=== PATIENT | male | born 1975 | race Caucasian/White ===

== ENCOUNTER 2020-04-10 17:14 | Emergency (ER) | payer BC, SELFPAY ==
[2020-04-10 17:24] VITALS: BP 148/101; PULSE 99; RESP 20; TEMP 36.7; O2SAT 98; BMI 42.0
--- NOTE | 2020-04-10 17:31 | HMH.EDUTC ---
[facility] [place] Clinical Impression: Migraine Qualifiers: Migraine type: with aura Status migrainosus presence: without status migrainosus Intractability: not intractable Qualified Code(s): G43.109 - Migraine with aura, not intractable, without status migrainosus Disposition: Home, Self-Care Condition on Discharge: Good Instructions: Migraine -- Adult, DI for Migraine Additional Instructions: Drink plenty of fluids. Resume your regular migraine treatment. Follow up with your regular doctor. GO TO THE ER FOR ANY WORSENING SYMPTOMS Referrals: Tez Sewell [Primary Care Provider] - Time of Disposition: 17:47 Medical Decision Making - Medical Records Medical records reviewed: No: I reviewed the patient's medical records. - Felice Inquiry Pt receiving controlled substance: No Vital Signs: 04/10/20 17:24 04/10/20 18:01 Temperature 98.0 F 98.0 F Temperature Source Oral Oral Pulse Rate 99 H Pulse Rate [Radial] 99 H Respiratory Rate 20 20 Blood Pressure 148/101 H Blood Pressure [Right Arm] 148/101 H Blood Pressure Mean [Right Arm] 116 Blood Pressure Source Automatic Cuff Blood Pressure Source [Right Arm] Automatic Cuff Blood Pressure Position Sitting Blood Pressure Position [Right Arm] Sitting 02 Sat by Pulse Oximetry 98 Oxygen Delivery Method Room Air Room Air Orders (Tests/Meds): ED MEDICATIONS Discontinued Medications Generic Name Dose Route Start Last Admin Trade Name Freq PRN Reason Stop Dose Admin Ketorolac Tromethamine 60 mg 04/10/20 17:29 04/10/20 17:58 Toradol 60mg/2ml Vial IM 04/10/20 17:30 60 mg ONCE ONE Administration Methylprednisolone Sodium Succinate 125 mg 04/10/20 17:29 04/10/20 17:58 Solu-Medrol 125mg/2ml Vial IM 04/10/20 17:30 125 mg ONCE ONE Administration Metoclopramide HCl 10 mg 04/10/20 17:29 04/10/20 17:58 Reglan 10mg/2ml Vial IM 04/10/20 17:30 10 mg ONCE ONE Administration [facility] [place] - General Stated complaint: Bad migraine Time Seen by Provider: 04/10/20 17:35 Mode of Arrival: Ambulatory Source of Information: Patient Limitations: No Limitations Description of Symptoms (Recalled from Triage Doc. by RN): migraine HEENT Symptoms (Recalled from RN notes): Yes Resp Symptoms (Recalled from RN notes): No Skin Symptoms (Recalled from RN notes): No MS Symptoms (Recalled from RN notes): No Functional Status (Recalled from RN notes): wnl - History of Present Illness Provider Complaint: He reports that he has had a migraine headache since this morning. He has a history of migraines. He denies any weakness or other complaints. - Related Data Previous Rx's Medication Instructions Recorded Acetaminophen 1,000 mg PO Q8H PRN #60 tab 09/12/19 Gabapentin [Gabapentin 300mg Cap] 300 mg PO TID #21 cap 09/12/19 Ibuprofen [Ibuprofen 600mg 600 mg PO Q6H #40 tab 09/12/19 Tablet] Sulfamethoxazole/Trimethoprim 1 each PO BID #20 tab 09/12/19 [Bactrim DS tablet] cephALEXin [cephALEXin 500mg 500 mg PO Q8H #30 cap 09/12/19 capsule*] Allergies Allergy/AdvReac Type Severity Reaction Status Date / Time No Known Allergies Allergy Verified 09/12/19 12:35 - Worker's Comp Is this a Worker's Comp case?: No [facility] History - Hepatitis A Screen Drug use history?: No High risk sexual behaviors?: No History of sexually transmitted infection?: No Currently employed?: No Childcare worker?: No Do you have indoor plumbing?: Yes Do you have electricity?: Yes Attestation statement:: This patient has been screened for Hepatitis A risk factors. I have reviewed the patient's past medical history: Yes - Social History Alcohol Intake: never Occupational Status: employed Housing: house ROS Obtained: Yes All systems reviewed & no additional complaints - Constitutional Constitutional: Denies chills, Denies fever(s) - Eyes Eyes: Denies blurry vision, Denies change in vision, Denies eye discharge - ENT Ears,
[2020-04-10 18:01] VITALS: BP 148/101; PULSE 99; RESP 20; TEMP 36.7; O2SAT 98
== END 2020-04-10 18:02 | disposition home or self-care (01) ==
PROVIDERS: Emergency Provider Nurse Practitioner Family; PCP Family Medicine
DX: G43.109 Migraine with aura, not intractable, without status migrainosus (principal)
CPT/HCPCS: 96372; 99201

== ENCOUNTER 2020-07-07 07:48 | Emergency (ER) | payer BC, SELFPAY ==
[2020-07-07 07:49] VITALS: BP 139/82; PULSE 88; RESP 18; TEMP 36.6; O2SAT 96; BMI 41.3
--- NOTE | 2020-07-07 08:27 | HMH.EDGENADL ---
ED Disposition Clinical Impression: Laceration Disposition: Home, Self-Care Condition on Discharge: Good Instructions: DI for Laceration Repair Additional Instructions: Have your stitches removed in 10-14 days, return with sign of infection including redness, warmth, drainage of pus. Do not submerge your arm in water for 48 hours, you can shower / wash your hands and pat dry. Referrals: Tez Sewell [Primary Care Provider] - - Critical Care Critical Care Time: No Attestation: On 07/07/20, the high probability of a clinically significant, sudden or life threatening deterioration of the following system(s) required my full and direct attention, intervention and personal management. The time I documented below is in addition to time spent performing reported procedures but includes the following listed in this critical care notation. Medical Decision Making - Felice Inquiry Pt receiving controlled substance: No Felice was queried for this patient: No Vital Signs: 07/07/20 07:49 Temperature 97.8 F Temperature Source Temporal Artery Scan Pulse Rate [Right] 88 Respiratory Rate 18 Blood Pressure [Right Arm] 139/82 Blood Pressure Mean [Right Arm] 101 02 Sat by Pulse Oximetry 96 Orders (Tests/Meds): ED MEDICATIONS Discontinued Medications Generic Name Dose Route Start Last Admin Trade Name Freq PRN Reason Stop Dose Admin Lidocaine HCl 20 ml 07/07/20 08:01 07/07/20 08:15 Lidocaine 1% 20ml Mdv IJ 07/07/20 08:02 20 ml ONCE ONE Administration Medical Decision Narrative: Patient is a 45 year old male who presents to the ED with laceration. Laceration was irrigated and repaired by myself without complication. Tetanus is up to date. Patient requesting refill of his home neurontin - of note he was prescribed a 1 month supply on June 24. Patient will need to follow up with his PCP for this. General Adult HPI - General Chief complaint: Wound/Laceration Stated complaint: cut right arm Time Seen by Provider: 07/07/20 07:49 Mode of Arrival: Ambulatory Limitations: No Limitations Description of Symptoms (Recalled from ER Triage Doc. by RN): Laceration to the right forearm from a nail. Tdap UTD. - History of Present Illness HPI narrative: Patient presents today with laceration to the right arm. Happened just prior to arrival. Patient states he was moving around couch cushions and there was a nail sticking out. No other injuries. Tetanus is up to date. - Related Data Previous Rx's Medication Instructions Recorded Acetaminophen 1,000 mg PO Q8H PRN #60 tab 09/12/19 Gabapentin [Gabapentin 300mg Cap] 300 mg PO TID #21 cap 09/12/19 Ibuprofen [Ibuprofen 600mg 600 mg PO Q6H #40 tab 09/12/19 Tablet] Sulfamethoxazole/Trimethoprim 1 each PO BID #20 tab 09/12/19 [Bactrim DS tablet] cephALEXin [cephALEXin 500mg 500 mg PO Q8H #30 cap 09/12/19 capsule*] Allergies Allergy/AdvReac Type Severity Reaction Status Date / Time No Known Allergies Allergy Verified 09/12/19 12:35 [facility] History - Hepatitis A Screen Drug use history?: No High risk sexual behaviors?: No History of sexually transmitted infection?: No Currently employed?: No Childcare worker?: No Do you have indoor plumbing?: Yes Do you have electricity?: Yes Attestation statement:: This patient has been screened for Hepatitis A risk factors. I have reviewed the patient's past medical history: Yes Medical History: Reports:: Anxiety - Social History Alcohol Intake: never Occupational Status: employed Housing: house ROS Obtained: Yes All systems reviewed & no additional complaints Physical Exam - General General appearance: alert, in no apparent distress - Head Head exam: atraumatic, normocephalic, normal inspection - Eye Eye exam: Present: normal appearance, PERRL, EOMI - ENT ENT exam: Present: normal exam, normal oropharynx, mucous membranes moist, TM's normal bilaterally, normal external ear
[2020-07-07 08:52] VITALS: BP 132/85; PULSE 87; RESP 17; TEMP 36.8; O2SAT 95
== END 2020-07-07 08:53 | disposition home or self-care (01) ==
PROVIDERS: Emergency Provider Emergency Medicine; PCP Family Medicine
DX: S51.811A Laceration without foreign body of right forearm, initial encounter (principal); W45.0XXA Nail entering through skin, initial encounter; W22.8XXA Striking against or struck by other objects, initial encounter; Y92.019 Unspecified place in single-family (private) house as the place of occurrence of the external cause
CPT/HCPCS: 12002; 99282

== ENCOUNTER 2020-07-10 18:06 | Emergency (ER) | payer BC, SELFPAY ==
[2020-07-10 18:30] VITALS: BP 144/92; PULSE 101; RESP 19; TEMP 36.9; O2SAT 98; BMI 43.6
--- NOTE | 2020-07-10 18:36 | XR_ITS ---
PROCEDURE: XR HAND RT MIN 3V CLINICAL INDICATION: injured middle finger Posttraumatic pain COMPARISON: No exams were available for comparison FINDINGS: There is a lucency through the proximal and ulnar aspect of the proximal phalanx of the 3rd digit consistent with a nondisplaced avulsion fracture best seen on the oblique view. There is a lucent lesion involving the tuft of the distal phalanx of the 4th digit. The a lucent area is present at this region measuring nearly 4 mm. There is suggestion of bony destruction. IMPRESSION: 1. Nondisplaced avulsion fracture proximal and ulnar aspect of the proximal phalanx of the 3rd digit 2. Lucent lesion of the tuft of the distal phalanx of the 4th digit with suggestion of some bony destruction which could be posttraumatic, infection, or neoplastic. Please correlate with clinical parameters.. Dictated by: Jorgito Jenkins MD 07/11/2020 05:50 Jorgito Jenkins MD in [place] 07/11/2020 05:50
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
[2020-07-10 19:28] VITALS: BP 144/92; PULSE 101; RESP 19; TEMP 36.9; O2SAT 98
== END 2020-07-10 19:29 | disposition home or self-care (01) ==
PROVIDERS: Emergency Provider Nurse Practitioner; PCP Family Medicine
DX: S51.811D Laceration without foreign body of right forearm, subsequent encounter (principal); L03.113 Cellulitis of right upper limb; S62.642A Nondisplaced fracture of proximal phalanx of right middle finger, initial encounter for closed fracture; W22.09XA Striking against other stationary object, initial encounter; Y92.010 Kitchen of single-family (private) house as the place of occurrence of the external cause
CPT/HCPCS: 73130; 99201

== ENCOUNTER 2020-07-12 12:50 | Emergency (ER) | payer BC, SELFPAY ==
--- NOTE | 2020-07-12 12:48 | ECG_ITS ---
APPROVED REPORT Exam: Resting ECG HR:106 bpm ECG Measurements Heart Rate 106 AXES AR 150 P 35 QRSd 90 QRS 24 QT 328 T 51 QTc 435 Conclusion Sinus tachycardia Otherwise normal ECG Electronically signed by : Micheal Banda, 07/12/2020 18:13:53
[2020-07-12 12:50] VITALS: BP 124/88; PULSE 102; RESP 20; TEMP 37.6; O2SAT 100; BMI 38.0
--- NOTE | 2020-07-12 12:54 | HMH.EDGENADL ---
ED Disposition Clinical Impression: Atypical chest pain, Vertigo, Visual disturbance, Vomiting and diarrhea Abdominal pain Qualifiers: Abdominal location: lower abdomen, unspecified Qualified Code(s): R10.30 - Lower abdominal pain, unspecified Disposition: Home, Self-Care Condition on Discharge: Good Instructions: DI for Atypical Chest Pain, DI for Vertigo, DI for Abdominal Pain-Adult, DI for Diarrhea and Traveler's Diarrhea -- Adult, DI for Vomiting -- Adult Additional Instructions: Follow-up with your primary care provider and with your creative recruiter. Return to the emergency department if symptoms worsen. Antivert for dizziness, Zofran for nausea and vomiting. Take Imodium for diarrhea. Additional instructions for CHEST PAIN: See your physician as soon as possible for further evaluation. Return immediately if worsening chest pain, vomiting, shortness of breath, fever, coughing of blood. Prescriptions: Meclizine HCl [Antivert 25mg tablet] 25 mg PO TIDP PRN #15 tab PRN Reason: Vertigo Transmission Status: Pending to [facility] Ondansetron [Zofran 4mg ODT] 4 mg PO TIDP PRN #10 tab.rapdis PRN Reason: Nausea And Vomiting Transmission Status: Pending to [facility] Referrals: PCP,No [Non-Staff] - - Critical Care Critical Care Time: No Attestation: On , the high probability of a clinically significant, sudden or life threatening deterioration of the following system(s) required my full and direct attention, intervention and personal management. The time I documented below is in addition to time spent performing reported procedures but includes the following listed in this critical care notation. Medical Decision Making - Felice Inquiry Pt receiving controlled substance: No Vital Signs: 07/12/20 12:50 07/12/20 14:06 07/12/20 15:39 Temperature 99.6 F Temperature Source Oral Pulse Rate [Left Radial] 102 H 107 H 79 Respiratory Rate 20 Blood Pressure [Right Arm] 124/88 93/62 L 119/73 Blood Pressure Mean [Right Arm] 100 72 88 Blood Pressure Source [Right Arm] Automatic Cuff Automatic Cuff Automatic Cuff Blood Pressure Position [Right Arm] Sitting Sitting Sitting 02 Sat by Pulse Oximetry 100 98 98 Oxygen Delivery Method Room Air Room Air Nasal Cannula Oxygen Flow Rate (LPM) 2 07/12/20 16:12 07/12/20 16:52 Temperature Temperature Source Pulse Rate [Left Radial] 76 68 Respiratory Rate Blood Pressure [Right Arm] 110/74 114/76 Blood Pressure Mean [Right Arm] 86 88 Blood Pressure Source [Right Arm] Automatic Cuff Automatic Cuff Blood Pressure Position [Right Arm] Sitting Sitting 02 Sat by Pulse Oximetry 98 99 Oxygen Delivery Method Nasal Cannula Nasal Cannula Oxygen Flow Rate (LPM) 2 2 - Lab Data Lab Results 07/12/20 12:30: WBC 13.2 H, RBC 4.96, Hgb 15.1, Hct 45.0, MCV 90.8, MCH 30.5, MCHC 33.6, RDW 15.4, Plt Count 512 H, MPV 7.0 L, Neut % (Auto) 65.8, Lymph % (Auto) 22.7, [place] % (Auto) 7.2, Eos % (Auto) 3.7, Baso % (Auto) 0.5, Neut # (Auto) 8.7 H, Lymph # (Auto) 3.0, [place] # (Auto) 1.0, Eos # (Auto) 0.5 H, Baso # (Auto) 0.1 07/12/20 12:30: Sodium 141, Potassium 4.0, Chloride 100, Carbon Dioxide 27, Anion Gap 18.0 H, BUN 18, Creatinine 1.60 H, Estimated Creat Clear 104, Estimated GFR 47 L, Est GFR ( Amer) 57 L, Glucose 101 H, Calcium 10.5 H, Troponin I < 0.01 07/12/20 12:30: Amylase 51, Lipase 125 07/12/20 16:16: Troponin I < 0.01 Result diagrams: 07/12/20 12:30 07/12/20 12:30 Orders (Tests/Meds): ED MEDICATIONS Discontinued Medications Generic Name Dose Route Start Last Admin Trade Name Victor Manuelq PRN Reason Stop Dose Admin Diazepam 5 mg 07/12/20 14:11 07/12/20 14:18 Diazepam 10mg/2ml Syringe IV 07/12/20 14:12 5 mg ONCE ONE Administration Ketorolac Tromethamine 15 mg 07/12/20 14:06 07/12/20 14:17 Ketorolac 30mg/Ml Vial IV 07/12/20 14:07 15 mg ONCE ONE Administration Meclizine HCl 25 mg 07/12/20 14:06 07/12/20 14:
--- NOTE | 2020-07-12 13:08 | CT_ITS ---
PROCEDURE: CT ANGIO CHEST CLINCIAL INDICATION: chest pain and back pain Chest pain, dizziness, nausea vomiting COMPARISON: No exams were available for comparison TECHNIQUE: IV Contrast: 70ML Isovue 370 Axial images obtained with sagittal and coronal reformats. All CT scans at the facility use one or more dose reduction, viz: automated exposure control, ma/kV adjustment per patient size (including targeted exams where dose is matched to indication, i.e. head), or iterative reconstruction technique. FINDINGS: HEART AND MEDIASTINAL STRUCTURES: No aneurysm or aortic dissection is evident. No evidence of central pulmonary embolus. Peripheral pulmonary arteries are not well opacified. No mediastinal or hilar mass. LUNGS AND PLEURAL SPACES: There are mild atelectatic changes in the lung bases. No lobar consolidation or collapse. There is evidence of old granulomatous disease BONY STRUCTURES: Degenerative changes thoracic spine UPPER ABDOMEN: Unremarkable. ADDITIONAL FINDINGS: No other significant abnormalities. IMPRESSION: No acute finding Dictated by: Jorgito Jenkins MD 07/12/2020 14:39 Jorgito Jenkins MD in [place] 07/12/2020 14:39
--- NOTE | 2020-07-12 13:09 | CT_ITS ---
PROCEDURE: CT ABDOMEN PELVIS W CON CLINICAL INDICATION: abdominal pain Nausea and vomiting with abdominal pain the COMPARISON: No exams were available for comparison TECHNIQUE: IV Contrast: 75ML Isovue 370 Oral Contrast None Axial images obtained with sagittal and coronal reformats. All CT scans at the facility use one or more dose reduction, viz: automated exposure control, ma/kV adjustment per patient size (including targeted exams where dose is matched to indication, i.e. head), or iterative reconstruction technique. FINDINGS: Low-density changes are present at the region of the falciform ligament and may be due to focal fatty infiltration of the liver. No other focal liver lesions are evident. The gallbladder, spleen, adrenal glands, pancreas, and kidneys show no acute finding. There is some renal cortical scarring on the right versus lobulation. No evidence of aortic aneurysm or dissection. The celiac artery, SMA have an unremarkable appearance. The FIORELLA is patent. No intestinal obstruction or free air. No evidence of appendicitis or diverticulitis. There are mild degenerative changes in the lumbar spine. No acute finding. Surgical clips are present along the right inguinal region from prior hernia repair. IMPRESSION: No acute finding Dictated by: Jorgito Jenkins MD 07/12/2020 14:51 Jorgito Jenkins MD in [place] 07/12/2020 14:51
[2020-07-12 13:16] LABS: Basophils # 0.1 K/mm3 (0-0.2); Basophils % 0.5 % (0.1-2.0); Eosinophils # 0.5 K/mm3 (0.0-0.4); Eosinophils % 3.7 % (0.1-12.0); Hemoglobin 15.1 g/dL (14.1-18.0); Lymphocytes % 22.7 % (10-50); Mean Corpuscular HGB Conc 33.6 g/dL (31.8-35.4); Mean Corpuscular Hemoglobin 30.5 pg (27.0-31.2); Mean Corpuscular Volume 90.8 fl (80-94); Monocytes % 7.2 % (1.7-9.3); Neutrophils # 8.7 K/mm3 (1.8-7.8); Neutrophils % 65.8 % (37.0-80.0); Platelet Count 512 K/mm3 (142-424); Red Blood Count 4.96 M/mm3 (4.60-6.20); Red Cell Distribution Width 15.4 % (11.5-17.5); White Blood Count 13.2 K/mm3 (4.8-10.8)
[2020-07-12 13:19] LABS: Blood Urea Nitrogen 18 mg/dl (9-20); Calcium 10.5 mg/dl (8.4-10.2); Carbon Dioxide 27 mmol/L (22.0-30.0); Chloride 100 mmol/L (98-107); Creatinine Clearance Estimated 104 mL/min (50-200); Estimated Glomerular Filt Rate 47 ml/min (>60); GFR (African American) 57 ML/MIN (>60); Glucose 101 mg/dl (74-100); Sodium 141 mmol/L (136-145)
[2020-07-12 13:33] LABS: Troponin I < 0.01 ng/ml (0.00-0.034)
[2020-07-12 13:34] LABS: Amylase 51 U/L (30-110); Lipase 125 U/L (23-300)
--- NOTE | 2020-07-12 13:48 | PC.NURSE ---
v/s delayed due to rad.
--- NOTE | 2020-07-12 14:00 | PC.NURSE ---
Pt returned from rad.
[2020-07-12 14:06] VITALS: BP 93/62; PULSE 107; O2SAT 98
--- NOTE | 2020-07-12 14:29 | PC.NURSE ---
Pt states that he does not want the promethazine due to it making him sleepy. He is requesting zofran instead. Instructed to pt that promethazine in recommended for dizziness. Pt understands. aware. Order changed to zofran
[2020-07-12 15:39] VITALS: BP 119/73; PULSE 79; O2SAT 98
--- NOTE | 2020-07-12 15:39 | PC.NURSE ---
Pt sleeping at this time.
[2020-07-12 16:12] VITALS: BP 110/74; PULSE 76; O2SAT 98
[2020-07-12 16:52] VITALS: BP 114/76; PULSE 68; O2SAT 99
[2020-07-12 16:54] LABS: Troponin I < 0.01 ng/ml (0.00-0.034)
[2020-07-12 17:28] VITALS: BP 133/74; PULSE 75; RESP 16; TEMP 36.6; O2SAT 98
== END 2020-07-12 17:30 | disposition home or self-care (01) ==
PROVIDERS: Emergency Provider Emergency Medicine; PCP Family Medicine
DX: R07.89 Other chest pain (principal); R42 Dizziness and giddiness; R10.30 Lower abdominal pain, unspecified; G43.709 Chronic migraine without aura, not intractable, without status migrainosus; I10 Essential (primary) hypertension; F41.9 Anxiety disorder, unspecified; Z79.899 Other long term (current) drug therapy; F11.21 Opioid dependence, in remission
CPT/HCPCS: 71275; 74177; 80048; 82150; 83690; 84484; 85025; 93005; 96374; 96375; 99284; J2405

== ENCOUNTER 2020-07-16 05:28 | Emergency (ER) | payer BC, SELFPAY ==
[2020-07-16 05:23] VITALS: BMI 34.7
[2020-07-16 05:24] VITALS: BP 167/108; PULSE 90; RESP 15; TEMP 36.5; O2SAT 95; BMI 34.2
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
[2020-07-16 05:45] VITALS: BP 151/79; PULSE 78; RESP 16; O2SAT 98
--- NOTE | 2020-07-16 05:49 | PC.NURSE ---
report called to at 0540. report given to paloma WILSON.
--- NOTE | 2020-07-16 05:51 | PC.NURSE ---
0448 air methods arrive
[2020-07-16 05:53] VITALS: BP 153/94; PULSE 90; RESP 15; TEMP 36.8; O2SAT 98
[2020-07-16 05:54] LABS: Chloride 103 mmol/L (98-107); Potassium 3.9 mmoL/L (3.5-5.1); Sodium 141 mmol/L (136-145)
[2020-07-16 05:56] LABS: Blood Urea Nitrogen 17 mg/dl (9-20); Creatinine Clearance Estimated 111 mL/min (50-200); Estimated Glomerular Filt Rate 65 ml/min (>60); GFR (African American) 79 ML/MIN (>60)
[2020-07-16 05:57] LABS: Alanine Aminotransferase 37 U/L (12-78); Albumin Level 4.8 g/dl (3.5-5.0); Albumin/Globulin Ratio 1.4 (1.1-1.8); Alkaline Phosphatase 96 U/L (38-126); Anion Gap 15.9 mEq/L (5-15); Aspartate Amino Transferase 41 U/L (17-59); Bilirubin,Total 0.6 mg/dl (0.2-1.3); Carbon Dioxide 26 mmol/L (22.0-30.0); Globulin 3.5 g/dL (1.3-3.2); Glucose 117 mg/dl (74-100); Total Protein,Serum 8.3 g/dl (6.3-8.2)
[2020-07-16 06:04] LABS: Basophils # 0.1 K/mm3 (0-0.2); Basophils % 0.9 % (0.1-2.0); Eosinophils # 0.4 K/mm3 (0.0-0.4); Eosinophils % 5.9 % (0.1-12.0); Hematocrit 44.2 % (42.0-52.0); Hemoglobin 15.4 g/dL (14.1-18.0); Lymphocytes # 1.3 K/mm3 (0.7-4.5); Lymphocytes % 17.2 % (10-50); Mean Corpuscular HGB Conc 34.7 g/dL (31.8-35.4); Mean Corpuscular Volume 89.4 fl (80-94); Mean Platelet Volume 7.2 fl (7.4-10.4); Monocytes # 0.5 K/mm3 (0.1-1.0); Monocytes % 6.9 % (1.7-9.3); Neutrophils % 69.1 % (37.0-80.0); Platelet Count 451 K/mm3 (142-424); Red Blood Count 4.95 M/mm3 (4.60-6.20); White Blood Count 7.3 K/mm3 (4.8-10.8)
[2020-07-16 06:23] LABS: Ethyl Alcohol < 10 mg/dl (0-10)
[2020-07-16 06:24] LABS: Acetaminophen < 10 ug/ml (10-30); Salicylate < 1.0 mg/dL (2.0-20.0)
[2020-08-08 13:52] LABS: POC Glucose,Bedside 118 (70-110)
== END 2020-07-16 06:01 | disposition short-term general hospital (02) ==
PROVIDERS: Emergency Provider Emergency Medicine; PCP Family Medicine
DX: S31.62 Laceration with foreign body of abdominal wall with penetration into peritoneal cavity (principal); X99.1XXA Assault by knife, initial encounter; Y92.027 Garden or yard of mobile home as the place of occurrence of the external cause; F41.9 Anxiety disorder, unspecified; Z23 Encounter for immunization
CPT/HCPCS: 71045; 72170; 80053; 80329; 82962; 85025; 90714; 96365; 96375; 99284; J2405

== ENCOUNTER 2020-07-19 18:54 | Emergency (ER) | payer BC, SELFPAY ==
[2020-07-19 18:56] VITALS: BP 138/80; PULSE 89; O2SAT 95
[2020-07-19 19:06] VITALS: BP 138/80; PULSE 76; RESP 16; TEMP 36.9; O2SAT 96; BMI 38.9
[2020-07-19 19:30] VITALS: BP 112/79; PULSE 80; RESP 18; O2SAT 93
[2020-07-19 19:30] LABS: Basophils # 0.1 K/mm3 (0-0.2); Basophils % 0.9 % (0.1-2.0); Eosinophils # 0.7 K/mm3 (0.0-0.4); Eosinophils % 8.6 % (0.1-12.0); Hematocrit 40.3 % (42.0-52.0); Lymphocytes # 1.8 K/mm3 (0.7-4.5); Lymphocytes % 21.3 % (10-50); Mean Corpuscular HGB Conc 34.7 g/dL (31.8-35.4); Mean Corpuscular Hemoglobin 30.9 pg (27.0-31.2); Mean Corpuscular Volume 89.1 fl (80-94); Monocytes # 0.6 K/mm3 (0.1-1.0); Monocytes % 7.4 % (1.7-9.3); Neutrophils # 5.1 K/mm3 (1.8-7.8); Neutrophils % 61.8 % (37.0-80.0); Platelet Count 431 K/mm3 (142-424); Red Blood Count 4.52 M/mm3 (4.60-6.20); Red Cell Distribution Width 14.7 % (11.5-17.5); White Blood Count 8.2 K/mm3 (4.8-10.8)
[2020-07-19 19:35] LABS: Chloride 98 mmol/L (98-107); Sodium 137 mmol/L (136-145)
[2020-07-19 19:38] LABS: Alanine Aminotransferase 21 U/L (12-78); Albumin Level 4.5 g/dl (3.5-5.0); Albumin/Globulin Ratio 1.4 (1.1-1.8); Alkaline Phosphatase 80 U/L (38-126); Aspartate Amino Transferase 22 U/L (17-59); Bilirubin,Total 0.5 mg/dl (0.2-1.3); Blood Urea Nitrogen 13 mg/dl (9-20); Calcium 9.5 mg/dl (8.4-10.2); Carbon Dioxide 31 mmol/L (22.0-30.0); Creatinine Clearance Estimated 172 mL/min (50-200); Estimated Glomerular Filt Rate 72 ml/min (>60); GFR (African American) 87 ML/MIN (>60); Globulin 3.2 g/dL (1.3-3.2); Glucose 109 mg/dl (74-100); Lactic Acid 1.1 mmol/L (0.7-2.1); Total Protein,Serum 7.7 g/dl (6.3-8.2)
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
[2020-07-19 20:15] VITALS: BP 113/76; PULSE 85; RESP 18; O2SAT 93
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
[2020-07-19 22:02] VITALS: BP 122/72; PULSE 84; RESP 16; TEMP 36.9; O2SAT 98
== END 2020-07-19 22:04 | disposition home or self-care (01) ==
PROVIDERS: Emergency Provider Emergency Medicine; PCP Family Medicine
DX: L03.311 Cellulitis of abdominal wall (principal); S31.62 Laceration with foreign body of abdominal wall with penetration into peritoneal cavity
CPT/HCPCS: 74177; 80053; 83605; 85025; 87040; 96365; 99284; Q9967

== ENCOUNTER 2020-08-22 11:47 | Emergency (ER) | payer BC, SELFPAY ==
[2020-08-22] VITALS (7 sets, daily range): BP systolic 120–189; BP diastolic 66–134; PULSE 60–78; RESP 16–26; TEMP 36.6–36.8; O2SAT 98–99; BMI 38.9
--- NOTE | 2020-08-22 11:52 | ECG_ITS ---
APPROVED REPORT Exam: Resting ECG HR:63 bpm ECG Measurements Heart Rate 63 AXES ND 134 P 29 QRSd 110 QRS 29 QT 384 T -6 QTc 392 Conclusion Normal sinus rhythm Isolated q in III Abnormal ECG Electronically signed by : Juan Krishna, 08/23/2020 07:10:20
--- NOTE | 2020-08-22 11:55 | HMH.EDABDPAI ---
ED Disposition Clinical Impression: Dehydration Constipation Qualifiers: Constipation type: slow transit constipation Qualified Code(s): K59.01 - Slow transit constipation Abdominal pain Qualifiers: Abdominal location: epigastric Qualified Code(s): R10.13 - Epigastric pain Disposition: Home, Self-Care Condition on Discharge: Good Instructions: DI for Acute Abdominal Pain Referrals: Tez Sewell [Primary Care Provider] - 3 days - Critical Care Critical Care Time: No Attestation: On , the high probability of a clinically significant, sudden or life threatening deterioration of the following system(s) required my full and direct attention, intervention and personal management. The time I documented below is in addition to time spent performing reported procedures but includes the following listed in this critical care notation. Medical Decision Making - Medical Records Medical records reviewed: Yes: I reviewed the patient's medical records. - Felice Inquiry Pt receiving controlled substance: No Vital Signs: 08/22/20 11:48 08/22/20 11:55 08/22/20 12:18 Temperature 98.2 F Temperature Source Oral Pulse Rate [Radial] 66 63 Respiratory Rate 26 H 20 Blood Pressure [Right Arm] 142/102 H 133/69 Blood Pressure Mean [Right Arm] 115 90 Blood Pressure Source [Right Arm] Automatic Cuff Blood Pressure Position [Right Arm] Sitting Sitting 02 Sat by Pulse Oximetry 98 99 Oxygen Delivery Method Room Air Room Air - Lab Data Lab results reviewed: Yes: I reviewed the patient's lab results. Lab Results 08/22/20 11:55: WBC 15.0 H, RBC 4.64, Hgb 14.8, Hct 43.5, MCV 93.9, MCH 31.8 H, MCHC 33.9, RDW 14.4, Plt Count 457 H, MPV 7.0 L, Neut % (Auto) 77.5, Lymph % (Auto) 12.4, [place] % (Auto) 5.1, Eos % (Auto) 4.3, Baso % (Auto) 0.5, Neut # (Auto) 11.6 H, Lymph # (Auto) 1.9, [place] # (Auto) 0.8, Eos # (Auto) 0.7 H, Baso # (Auto) 0.1, Total Counted 100, Neutrophils % (Manual) 81 H, Lymphocytes % (Manual) 15, Monocytes % (Manual) 3, Eosinophils % (Manual) 1, Platelet Estimate Slight increase, RBC Morphology Normal 08/22/20 11:55: Sodium 140, Potassium 3.6, Chloride 100, Carbon Dioxide 30, Anion Gap 13.6, BUN 13, Creatinine 1.10, Estimated Creat Clear 172, Estimated GFR 72, Est GFR ( Amer) 87, Glucose 158 H, Calcium 10.0, Total Bilirubin 0.6, AST 25, ALT 19, Alkaline Phosphatase 101, Troponin I < 0.01, Total Protein 8.7 H, Albumin 4.7, Globulin 4.0 H, Albumin/Globulin Ratio 1.2, Lipase 67 Result diagrams: 08/22/20 11:55 08/22/20 11:55 Orders (Tests/Meds): ED MEDICATIONS Discontinued Medications Generic Name Dose Route Start Last Admin Trade Name Freq PRN Reason Stop Dose Admin Belladonna Alkaloids 60 ml 08/22/20 12:30 08/22/20 12:51 Gi Cocktail 60ml Udc PO 08/22/20 12:31 60 ml ONCE ONE Administration Sodium Chloride 1,000 mls @ 999 mls/hr 08/22/20 12:00 08/22/20 12:52 Sod Chlor 0.9% 1000ml Bag IV 08/22/20 13:00 999 mls/hr .Q1H1M NYDIA Administration Ketorolac Tromethamine 30 mg 08/22/20 12:30 08/22/20 12:51 Ketorolac 30mg/Ml Vial IV 08/22/20 12:31 30 mg ONCE ONE Administration Ondansetron HCl 4 mg 08/22/20 11:54 08/22/20 12:51 Ondansetron 4mg/2ml Vial IV 08/22/20 11:55 4 mg ONCE ONE Administration ORDERS Category Date Time Status Troponin I Q3H Lab 08/22/20 15:00 Ordered Troponin I Q3H Lab 08/22/20 18:00 Ordered - Radiology Data #1 Image(s): Abdomen Image Reviewed: Yes I reviewed the patient's radiology results, Yes I reviewed the patient's radiology image Preliminary Findings: Normal/NAD Mild constipation - ECG Data Tracing #1 EKG at 1152 shows a sinus rhythm with a rate of 63. No acute ST segment elevation or depression. No hyperacute T waves. Normal intervals. EKG interpreted by me. There is T wave inversion on lead III, and a Q wave. Q wave is consistent with previous EKGs and while T wave inversion cannot be seen on
[2020-08-22 12:04] LABS: Basophils # 0.1 K/mm3 (0-0.2); Basophils % 0.5 % (0.1-2.0); Eosinophils # 0.7 K/mm3 (0.0-0.4); Eosinophils % 4.3 % (0.1-12.0); Hematocrit 43.5 % (42.0-52.0); Hemoglobin 14.8 g/dL (14.1-18.0); Lymphocytes # 1.9 K/mm3 (0.7-4.5); Lymphocytes % 12.4 % (10-50); Mean Corpuscular HGB Conc 33.9 g/dL (31.8-35.4); Mean Corpuscular Hemoglobin 31.8 pg (27.0-31.2); Mean Corpuscular Volume 93.9 fl (80-94); Monocytes # 0.8 K/mm3 (0.1-1.0); Monocytes % 5.1 % (1.7-9.3); Neutrophils # 11.6 K/mm3 (1.8-7.8); Neutrophils % 77.5 % (37.0-80.0); Platelet Count 457 K/mm3 (142-424); Red Blood Count 4.64 M/mm3 (4.60-6.20); Red Cell Distribution Width 14.4 % (11.5-17.5)
[2020-08-22 12:07] LABS: MANUAL DIFFERENTIAL MANUAL DIFFERENTIAL (MANUAL DIFF)
--- NOTE | 2020-08-22 12:08 | XR_ITS ---
PROCEDURE: XR ABDOMEN MIN 2V CLINICAL INDICATION: epigastric pain COMPARISON: No exams were available for comparison FINDINGS: Mild amount of retained colonic feces in the colon on the right. There are multiple surgical tacks in the lower pelvic region. No intestinal obstruction or free air. No acute bony findings. There are degenerative changes in the lumbar spine. No renal calculi. IMPRESSION: No acute findings. Dictated by: Jorgito Jenkins MD 08/22/2020 13:18 Jorgito Jenkins MD in [place] 08/22/2020 13:18
[2020-08-22 12:09] LABS: Chloride 100 mmol/L (98-107); Sodium 140 mmol/L (136-145)
[2020-08-22 12:10] LABS: Potassium 3.6 mmoL/L (3.5-5.1)
[2020-08-22 12:12] LABS: Alanine Aminotransferase 19 U/L (12-78); Alkaline Phosphatase 101 U/L (38-126); Anion Gap 13.6 mEq/L (5-15); Aspartate Amino Transferase 25 U/L (17-59); Bilirubin,Total 0.6 mg/dl (0.2-1.3); Blood Urea Nitrogen 13 mg/dl (9-20); Carbon Dioxide 30 mmol/L (22.0-30.0); Creatinine Clearance Estimated 172 mL/min (50-200); Estimated Glomerular Filt Rate 72 ml/min (>60); GFR (African American) 87 ML/MIN (>60); Lipase 67 U/L (23-300)
[2020-08-22 12:13] LABS: Albumin Level 4.7 g/dl (3.5-5.0); Albumin/Globulin Ratio 1.2 (1.1-1.8); Eosinophils % 1 % (0-3); Glucose 158 mg/dl (74-100); Lymphocytes % 15 % (10-50); Monocytes % 3 % (2-9); Neutrophils % 81 % (42-76); Total Cells Counted 100; Total Protein,Serum 8.7 g/dl (6.3-8.2)
[2020-08-22 12:14] LABS: Platelet Estimate Slight Increase; RBC Morphology Normal
[2020-08-22 12:28] LABS: Troponin I < 0.01 ng/ml (0.00-0.034)
== END 2020-08-22 14:34 | disposition home or self-care (01) ==
PROVIDERS: Emergency Provider Emergency Medicine; PCP Family Medicine
DX: E86.0 Dehydration (principal); K59.01 Slow transit constipation; F41.9 Anxiety disorder, unspecified; I10 Essential (primary) hypertension; Z79.899 Other long term (current) drug therapy
CPT/HCPCS: 74019; 80053; 83690; 84484; 85007; 85025; 93005; 96365; 96375; 99283; J2405

== ENCOUNTER 2020-09-29 21:40 | Emergency (ER) | payer BC, SELFPAY ==
[2020-09-29 21:41] VITALS: BP 143/86; PULSE 97; RESP 16; TEMP 37.3; O2SAT 96; BMI 39.5
--- NOTE | 2020-09-29 22:07 | CT_ITS ---
PROCEDURE: CT ABDOMEN PELVIS W CON CLINICAL INDICATION: abd pain Recent cholecystectomy with drain present COMPARISON: CT CT ABDOMEN PELVIS W CON from 07/12/[address] ABDOMEN PELVIS W CON from 07/19/2020 TECHNIQUE: IV Contrast: 75ML Isovue 370 Oral Contrast None Axial images obtained with sagittal and coronal reformats. All CT scans at the facility use one or more dose reduction, viz: automated exposure control, ma/kV adjustment per patient size (including targeted exams where dose is matched to indication, i.e. head), or iterative reconstruction technique. FINDINGS: LOWER THORAX: Bibasilar atelectatic changes are present. Calcified granuloma is present in the left lower lobe. Incidental note made of gynecomastia. ABDOMEN & PELVIS: There is a pigtail catheter in the right upper quadrant in the gallbladder fossa. There is a small amount of fluid in this region. Stents are present within the common bile duct and within the pancreatic head. The spleen is enlarged at 15 cm. The adrenal glands and the kidneys have an unremarkable appearance. No intestinal obstruction or free air. The appendix is somewhat prominent measuring 7 mm. Previously the appendix was barely visible. There is no stranding of the periappendiceal fat and no evidence of abscess or perforation. There is mild urinary bladder wall thickening which may be seen with incomplete distension, chronic outflow obstruction, or cystitis. There is a mild amount of retained colonic feces. There is mild degenerative changes in the thoracic and lumbar spine. IMPRESSION: 1. Postsurgical changes from prior cholecystectomy with biliary drain, common bile duct stent, and pancreatic stent in place. Small amount of fluid is present within the gallbladder fossa. The biliary drain catheter is along the lateral aspect of the fluid collection. 2. Mild prominence of the appendix measuring up to 9 mm in diameter. Previously the appendix what was barely visible. Please correlate with clinical parameters as appendicitis is a consideration.. Dictated by: Jorgito Jenkins MD 09/30/2020 09:27 Jorgito Jenkins MD in [place] 09/30/2020 09:27
[2020-09-29 22:20] LABS: Basophils # 0.1 K/mm3 (0-0.2); Basophils % 1.2 % (0.1-2.0); Eosinophils # 0.5 K/mm3 (0.0-0.4); Eosinophils % 6.5 % (0.1-12.0); Hematocrit 36.7 % (42.0-52.0); Hemoglobin 12.4 g/dL (14.1-18.0); Lymphocytes % 26.9 % (10-50); Mean Corpuscular HGB Conc 33.8 g/dL (31.8-35.4); Mean Corpuscular Hemoglobin 29.1 pg (27.0-31.2); Mean Platelet Volume 6.9 fl (7.4-10.4); Monocytes # 0.4 K/mm3 (0.1-1.0); Monocytes % 5.6 % (1.7-9.3); Neutrophils # 4.4 K/mm3 (1.8-7.8); Neutrophils % 59.8 % (37.0-80.0); Platelet Count 400 K/mm3 (142-424); Red Blood Count 4.27 M/mm3 (4.60-6.20); Red Cell Distribution Width 14.8 % (11.5-17.5); White Blood Count 7.4 K/mm3 (4.8-10.8)
[2020-09-29 22:29] LABS: Alanine Aminotransferase 20 U/L (12-78); Albumin Level 4.2 g/dl (3.5-5.0); Alkaline Phosphatase 124 U/L (38-126); Amylase 47 U/L (30-110); Anion Gap 13.6 mEq/L (5-15); Aspartate Amino Transferase 24 U/L (17-59); Bilirubin,Total 0.7 mg/dl (0.2-1.3); Blood Urea Nitrogen 12 mg/dl (9-20); Calcium 9.5 mg/dl (8.4-10.2); Carbon Dioxide 29 mmol/L (22.0-30.0); Chloride 100 mmol/L (98-107); Creatinine Clearance Estimated 162 mL/min (50-200); Estimated Glomerular Filt Rate 72 ml/min (>60); GFR (African American) 87 ML/MIN (>60); Globulin 4.1 g/dL (1.3-3.2); Glucose 127 mg/dl (74-100); Lipase 108 U/L (23-300); Potassium 3.6 mmoL/L (3.5-5.1); Sodium 139 mmol/L (136-145); Total Protein,Serum 8.3 g/dl (6.3-8.2)
[2020-09-29 22:35] LABS: C-Reactive Protein 35.2 mg/L (0-4)
[2020-09-29 22:48] LABS: Procalcitonin 0.079 ng/mL (0.0-2.0)
[2020-09-29 22:56] LABS: Erythrocyte Sedimentation Rate > 140 mm/hr (0-15)
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
--- NOTE | 2020-09-29 23:38 | PC.NURSE ---
Called radiology for a disc at this time
[2020-09-29 23:51] VITALS: BP 124/72; PULSE 92; RESP 18; TEMP 37.3; O2SAT 99
--- NOTE | 2020-09-30 10:02 | PC.NURSE ---
Attempted to call patient and his phone advised caller was not accepting calls at this time. Called and spoke with friend who was listed on contacts and asked him if he could get in touch with Mr. Gabriel and have him call me at [phone] [facility].
--- NOTE | 2020-09-30 10:26 | PC.NURSE ---
Spoke to patient and informed him of CT results. Informed patient per radiologist he needs to be reexamined today. Pt stated he understood and would go to the ER.
== END 2020-09-29 23:55 | disposition home or self-care (01) ==
PROVIDERS: Emergency Provider Emergency Medicine; PCP Family Medicine
DX: G89.18 Other acute postprocedural pain (principal); R10.11 Right upper quadrant pain; R11.0 Nausea
CPT/HCPCS: 74177; 80053; 82150; 83690; 84145; 85025; 85651; 86140; 96365; 96375; 99282; Q9967

== ENCOUNTER 2021-01-14 20:29 | Emergency (ER) | payer BC, SELFPAY ==
[2021-01-14 20:27] VITALS: BP 132/91; PULSE 94; RESP 16; TEMP 36.9; O2SAT 98; BMI 39.5
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
--- NOTE | 2021-01-14 21:05 | [facility].EDBACK ---
ED Disposition Clinical Impression: Lumbar back pain, Elevated LFTs Episode of syncope Qualifiers: Syncope type: unspecified Qualified Code(s): R55 - Syncope and collapse Disposition: Home, Self-Care Condition on Discharge: Good Instructions: DI for Low Back Pain Additional Instructions: see pcp for kesha collins about syncope and abn liver enz Referrals: Tez Sewell [Primary Care Provider] - - Critical Care Critical Care Time: No Attestation: On 01/14/21, the high probability of a clinically significant, sudden or life threatening deterioration of the following system(s) required my full and direct attention, intervention and personal management. The time I documented below is in addition to time spent performing reported procedures but includes the following listed in this critical care notation. Medical Decision Making - Medical Records Medical records reviewed: Yes: I reviewed the patient's medical records. - Felice Inquiry Pt receiving controlled substance: No Vital Signs: 01/14/21 20:27 Temperature 98.5 F Temperature Source Oral Pulse Rate [Right Radial] 94 H Respiratory Rate 16 Blood Pressure [Right Arm] 132/91 H Blood Pressure Mean [Right Arm] 104 Blood Pressure Source [Right Arm] Automatic Cuff Blood Pressure Position [Right Arm] Sitting 02 Sat by Pulse Oximetry 98 Oxygen Delivery Method Room Air - Lab Data Lab results reviewed: Yes: I reviewed the patient's lab results. Lab Results 01/14/21 20:58: WBC 12.1 H, RBC 5.09, Hgb 14.4, Hct 44.0, MCV 86.4, MCH 28.3, MCHC 32.8, RDW 14.8, Plt Count 533 H, MPV 7.0 L, Neut % (Auto) 76.2, Lymph % (Auto) 9.2 L, [place] % (Auto) 5.3, Eos % (Auto) 8.3, Baso % (Auto) 1.0, Neut # (Auto) 9.2 H, Lymph # (Auto) 1.1, [place] # (Auto) 0.6, Eos # (Auto) 1.0 H, Baso # (Auto) 0.1 01/14/21 20:58: Sodium 137, Potassium 4.3, Chloride 101, Carbon Dioxide 25, Anion Gap 15.3 H, BUN 15, Creatinine 1.00, Estimated Creat Clear 178, Estimated GFR 80, Est GFR ( Amer) 97, Glucose 113 H, Calcium 10.0, Troponin I < 0.01 01/14/21 20:58: Total Bilirubin 1.6 H, Direct Bilirubin 0.9 H, Conjugated Bilirubin 0.0, Indirect Bilirubin 0.7, Unconjugated Bilirubin 0.7, AST 237 H, ALT 246 H, Alkaline Phosphatase 1108 H, C-Reactive Protein 56.5 H, Total Protein 8.9 H, Albumin 4.9 01/14/21 20:58: ESR 22 H 01/14/21 20:58: Procalcitonin 1.18 Result diagrams: 01/14/21 20:58 01/14/21 20:58 Orders (Tests/Meds): ED MEDICATIONS Discontinued Medications Generic Name Dose Route Start Last Admin Trade Name Freq PRN Reason Stop Dose Admin Iopamidol 75 ml 01/14/21 21:51 01/14/21 21:52 Iopamidol-370 (76%);100ml Bottle IV 01/14/21 21:52 75 ml ONCE ONE Administration Ketorolac Tromethamine 60 mg 01/14/21 20:40 01/14/21 20:50 Ketorolac 60mg/2ml Vial IM 01/14/21 20:41 60 mg ONCE ONE Administration Sodium Chloride 10 ml 01/14/21 21:51 01/14/21 21:52 Sodium Chloride 0.9% 10ml Syr (Rad Only) IV 01/14/21 21:52 10 ml ONCE ONE Administration ORDERS Category Date Time Status Troponin I Q3H Lab 01/14/21 23:49 Ordered Troponin I Q3H Lab 01/15/21 02:49 Ordered UA [Urinalysis and Microscopic] Stat Lab 01/14/21 20:50 Ordered UDS [Drug Screen,Urine] Stat Lab 01/14/21 20:57 Ordered - Radiology Data #1 Image(s): Chest, Pelvis Image Reviewed: Yes I reviewed the patient's radiology image Preliminary Findings: Normal/NAD - CT Data CT Scan: Head, C-Spine, Abdomen, Pelvis, T-Spine, L-Spine Time Received: 22:[address] Reviewed: Yes: I have viewed the radiologist's interpretation Preliminary Findings: No Fracture Seen Medical Decision Narrative: no fx - and has elevated lft and has ongoing issues with liver - discussed no driving or hazardous activity till eval by pcp - Back Pain HPI - General Chief Complaint: Back Pain/Injury Stated Complaint: back pain Time Seen by Provider: 01/14/21 20:45 Mode of Arrival: EMS Source of Information: Patient
[2021-01-14 21:08] LABS: Basophils # 0.1 K/mm3 (0-0.2); Eosinophils % 8.3 % (0.1-12.0); Hemoglobin 14.4 g/dL (14.1-18.0); Lymphocytes # 1.1 K/mm3 (0.7-4.5); Lymphocytes % 9.2 % (10-50); Mean Corpuscular HGB Conc 32.8 g/dL (31.8-35.4); Mean Corpuscular Hemoglobin 28.3 pg (27.0-31.2); Mean Corpuscular Volume 86.4 fl (80-94); Monocytes # 0.6 K/mm3 (0.1-1.0); Monocytes % 5.3 % (1.7-9.3); Neutrophils # 9.2 K/mm3 (1.8-7.8); Neutrophils % 76.2 % (37.0-80.0); Platelet Count 533 K/mm3 (142-424); Red Blood Count 5.09 M/mm3 (4.60-6.20); Red Cell Distribution Width 14.8 % (11.5-17.5); White Blood Count 12.1 K/mm3 (4.8-10.8)
[2021-01-14 21:09] LABS: Chloride 101 mmol/L (98-107); Sodium 137 mmol/L (136-145)
[2021-01-14 21:10] LABS: Potassium 4.3 mmoL/L (3.5-5.1)
[2021-01-14 21:12] LABS: Blood Urea Nitrogen 15 mg/dl (9-20); Creatinine Clearance Estimated 178 mL/min (50-200); Estimated Glomerular Filt Rate 80 ml/min (>60); GFR (African American) 97 ML/MIN (>60)
[2021-01-14 21:13] LABS: Anion Gap 15.3 mEq/L (5-15); Carbon Dioxide 25 mmol/L (22.0-30.0); Glucose 113 mg/dl (74-100)
[2021-01-14 21:15] LABS: Alanine Aminotransferase 246 U/L (12-78); Aspartate Amino Transferase 237 U/L (17-59); Bilirubin,Direct 0.9 mg/dl (0.0-0.4); Bilirubin,Indirect 0.7 mg/dL (0.0-0.9); Bilirubin,Total 1.6 mg/dl (0.2-1.3); Bilirubin,Unconjugated 0.7 mg/dL (0.0-1.1)
[2021-01-14 21:16] LABS: Albumin Level 4.9 g/dl (3.5-5.0); Alkaline Phosphatase 1108 U/L (38-126); Total Protein,Serum 8.9 g/dl (6.3-8.2)
[2021-01-14 21:21] LABS: C-Reactive Protein 56.5 mg/L (0-4)
[2021-01-14 21:25] LABS: Troponin I < 0.01 ng/ml (0.00-0.034)
[2021-01-14 21:29] LABS: Procalcitonin 1.18 ng/mL (0.0-2.0)
[2021-01-14 21:33] LABS: Erythrocyte Sedimentation Rate 22 mm/hr (0-15)
[2021-01-14 22:42] VITALS: BP 149/82; PULSE 82; RESP 18; TEMP 36.7; O2SAT 98
== END 2021-01-14 22:46 | disposition home or self-care (01) ==
PROVIDERS: Emergency Provider Emergency Medicine; PCP Family Medicine
DX: M54.5 Low back pain (principal); R55 Syncope and collapse; R07.89 Other chest pain; V89.0XXA Person injured in unspecified motor-vehicle accident, nontraffic, initial encounter; Y92.488 Other paved roadways as the place of occurrence of the external cause
CPT/HCPCS: 70450; 71046; 72125; 72128; 72131; 72170; 74177; 80048; 80076; 84145; 84484; 85025; 85651; 86140; 99282; Q9967

== ENCOUNTER 2021-03-21 18:32 | Emergency (ER) | payer BC, SELFPAY ==
[2021-03-21 18:32] VITALS: BP 136/87; PULSE 104; RESP 20; TEMP 37.1; O2SAT 94; BMI 35.3
--- NOTE | 2021-03-21 18:47 | CT_ITS ---
PROCEDURE INFORMATION: Exam: CT Abdomen And Pelvis With Contrast Exam date and time: 03/21/2021 6:47 PM Age: 46 years old Clinical indication: Abdominal pain; Acute; Prior surgery; Surgery date: 6+ months; Surgery type: Gb, with pancreatic stent TECHNIQUE: Imaging protocol: Computed tomography of the abdomen and pelvis with contrast. Total images: 349 Radiation optimization: All CT scans at this facility use at least one of these dose optimization techniques: automated exposure control; mA and/or kV adjustment per patient size (includes targeted exams where dose is matched to clinical indication); or iterative reconstruction. Contrast material: ISOVUE; Contrast volume: 75 ml; Contrast route: IV; COMPARISON: CT ABDOMEN PELVIS W CON 01/14/2021 9:44 PM FINDINGS: Lungs: 2 mm calcified granuloma in the posterior left base. Patchy scarring or atelectasis in the lung bases. Heart: Heart size normal. Mediastinal space: Question mild esophageal wall thickening in the distal esophagus suspicious for esophagitis. Consider follow-up esophagram or endoscopic assessment as clinically indicated. Liver: Normal contour. No mass lesions. Mild intrahepatic biliary ductal dilatation. Gallbladder and bile ducts: Prior cholecystectomy. There is a thin walled 3.6 x 2.3 by 2.1 cm fluid collection in the gallbladder fossa which is slightly decreased in size. There is mild soft tissue stranding in the nearby mesenteric fat which is unchanged to slightly decreased. The appearance does not suggest abscess or hematoma in this likely represents either a small postoperative seroma or biloma. There is a biliary stent in place running from the right hepatic duct distribution to the duodenum. There is also a metallic stent present in the common bile duct. These are unchanged and no gross hardware complication is evident. Pancreas: Normal. No inflammatory changes or ductal dilation. Spleen: Mild splenomegaly unchanged measuring 15 cm maximum dimension. Granulomatous calcification in the spleen. Adrenal glands: Normal. No adrenal mass. Kidneys and ureters: No acute abnormalities. No hydronephrosis or hydroureter. No urinary tract stones are identified. Stomach and bowel: The stomach is unremarkable. The small bowel is nondilated with no gross abnormality. There is a large amount of stool distributed throughout the colon suggesting constipation. Appendix: The appendix is normal in caliber and demonstrates no evidence of appendicitis. Intraperitoneal space: Small volume intraperitoneal free fluid around the right hepatic lobe slightly decreased. No free air. Vasculature: No acute process. No abdominal aortic aneurysm. Lymph nodes: No adenopathy. Urinary bladder: Unremarkable as visualized. Reproductive: Unremarkable as visualized. Bones/joints: No acute osseous abnormalities. Soft tissues: Small fatty supraumbilical hernia unchanged without evidence of bowel herniation or strangulation. Evidence of prior right inguinal hernia repair with local surgical tacks in the region.Small fatty left inguinal hernia with no associated bowel herniation or evidence of strangulation.. IMPRESSION: 1. Prior cholecystectomy. 2. Small thin-walled fluid collection in the gallbladder fossa measuring up to 3.6 cm in size which is slightly decreased in size from 01/14/2021 and likely represents resolving seroma or biloma, with no features to favor abscess or hematoma. 3. There is nearby fatty stranding near the gallbladder fossa and small volume peritoneal fluid around the right hepatic lobe , both of which are mildly decreased from prior exam. Given the patient's symptoms, HIDA scan
[2021-03-21 19:00] VITALS: BP 119/80; PULSE 101; O2SAT 93
[2021-03-21 19:00] LABS: Basophils # 0.1 K/mm3 (0-0.2); Basophils % 0.6 % (0.1-2.0); Eosinophils # 0.6 K/mm3 (0.0-0.4); Eosinophils % 4.8 % (0.1-12.0); Hematocrit 39.4 % (42.0-52.0); Hemoglobin 13.2 g/dL (14.1-18.0); Lymphocytes # 1.2 K/mm3 (0.7-4.5); Lymphocytes % 9.2 % (10-50); Mean Corpuscular HGB Conc 33.6 g/dL (31.8-35.4); Mean Corpuscular Volume 92.2 fl (80-94); Mean Platelet Volume 7.4 fl (7.4-10.4); Monocytes # 0.7 K/mm3 (0.1-1.0); Monocytes % 5.1 % (1.7-9.3); Neutrophils # 10.2 K/mm3 (1.8-7.8); Neutrophils % 80.3 % (37.0-80.0); Platelet Count 383 K/mm3 (142-424); Red Blood Count 4.28 M/mm3 (4.60-6.20); Red Cell Distribution Width 16.1 % (11.5-17.5); White Blood Count 12.7 K/mm3 (4.8-10.8)
[2021-03-21 19:04] LABS: Alanine Aminotransferase 157 U/L (12-78); Albumin Level 4.3 g/dl (3.5-5.0); Albumin/Globulin Ratio 1.2 (1.1-1.8); Alkaline Phosphatase 813 U/L (38-126); Amylase 40 U/L (30-110); Anion Gap 14.5 mEq/L (5-15); Aspartate Amino Transferase 106 U/L (17-59); Bilirubin,Total 2.6 mg/dl (0.2-1.3); Blood Urea Nitrogen 9 mg/dl (9-20); Calcium 9.3 mg/dl (8.4-10.2); Carbon Dioxide 30 mmol/L (22.0-30.0); Chloride 98 mmol/L (98-107); Creatinine Clearance Estimated 154 mL/min (50-200); Estimated Glomerular Filt Rate 72 ml/min (>60); GFR (African American) 87 ML/MIN (>60); Globulin 3.6 g/dL (1.3-3.2); Glucose 113 mg/dl (74-100); Lipase 37 U/L (23-300); Potassium 4.5 mmoL/L (3.5-5.1); Sodium 138 mmol/L (136-145); Total Protein,Serum 7.9 g/dl (6.3-8.2)
[2021-03-21 19:30] VITALS: BP 136/89; PULSE 92; O2SAT 94
--- NOTE | 2021-03-21 19:30 | [facility].EDGENADL ---
ED Disposition Clinical Impression: Right upper quadrant abdominal pain Constipation Qualifiers: Constipation type: unspecified constipation type Qualified Code(s): K59.00 - Constipation, unspecified Disposition: Home, Self-Care Condition on Discharge: Fair Instructions: DI for Acute Abdominal Pain Additional Instructions: Follow-up at [facility] general surgery clinic, call for appointment. [phone] Magnesium citrate, 1 bottle. MiraLAX as prescribed. Additional instructions for ABDOMINAL PAIN: See your physician as soon as possible for further evaluation. Return immediately if worsening abdominal pain, vomiting, shortness of breath, fever, vomiting of blood or abdominal distention. Prescriptions: polyethylene glycoL 3350 [Miralax 17gm Packet] 17 gm PO DAILY #5 packet Transmission [facility]: [facility] Referrals: Tez Sewell [Primary Care Provider] - - Critical Care Critical Care Time: No Attestation: On 03/21/21, the high probability of a clinically significant, sudden or life threatening deterioration of the following system(s) required my full and direct attention, intervention and personal management. The time I documented below is in addition to time spent performing reported procedures but includes the following listed in this critical care notation. Medical Decision Making - Medical Records Medical records reviewed: Yes: I reviewed the patient's medical records. MR Comment: Reviewed patient's records at [facility] via portal. He was admitted 08/31/2020 through 09/04/2020 for cholecystitis, ascending cholangitis, choledocholithiasis, and gallstone pancreatitis. He was discharged with a biliary drainage tube in place. I do not see any follow-up surgery clinic visit since that discharge. I discussed this with the patient. He now admits to me that he has never followed up at since his surgery. He says it is due to transportation. When I asked who took his drainage tube out he says that his dog knocked it out. He says his primary care doctor is trying to set him up with a surgeon for follow-up. - Felice Inquiry Pt receiving controlled substance: Yes Felice was queried for this patient: Yes Risks and benefits of using a controlled substance: were discussed with pt by me Vital Signs: 03/21/21 18:32 03/21/21 19:00 03/21/21 19:30 Temperature 98.8 F Temperature Source Oral Pulse Rate 101 H 92 H Pulse Rate [Left] 104 H Respiratory Rate 20 Blood Pressure 119/80 136/89 Blood Pressure [Right Arm] 136/87 Blood Pressure Mean 99 Blood Pressure Mean [Right Arm] 103 Blood Pressure Source [Right Arm] Automatic Cuff Blood Pressure Position [Right Arm] Supine 02 Sat by Pulse Oximetry 94 L 93 L 94 L Oxygen Delivery Method Room Air Room Air Room Air 03/21/21 20:00 Temperature Temperature Source Pulse Rate 100 H Pulse Rate [Left] Respiratory Rate Blood Pressure 123/79 Blood Pressure [Right Arm] Blood Pressure Mean Blood Pressure Mean [Right Arm] Blood Pressure Source [Right Arm] Blood Pressure Position [Right Arm] 02 Sat by Pulse Oximetry 100 Oxygen Delivery Method - Lab Data Lab Results 03/21/21 18:30: WBC 12.7 H, RBC 4.28 L, Hgb 13.2 L, Hct 39.4 L, MCV 92.2, MCH 31.0, MCHC 33.6, RDW 16.1, Plt Count 383, MPV 7.4, Neut % (Auto) 80.3 H, Lymph % (Auto) 9.2 L, [place] % (Auto) 5.1, Eos % (Auto) 4.8, Baso % (Auto) 0.6, Neut # (Auto) 10.2 H, Lymph # (Auto) 1.2, [place] # (Auto) 0.7, Eos # (Auto) 0.6 H, Baso # (Auto) 0.1 03/21/21 18:30: Sodium 138, Potassium 4.5, Chloride 98, Carbon Dioxide 30, Anion Gap 14.5, BUN 9, Creatinine 1.10, Estimated Creat Clear 154, Estimated GFR 72, Est GFR ( Amer) 87, Glucose 113 H, Calcium 9.3, Total Bilirubin 2.6 H, AST 106 H, ALT 157 H, Alkaline Phosphatase 813 H, Total Protein 7.9, Albumin 4.3, Globulin 3.6 H, Albumin/Globulin Ratio 1.2, Amylase 40, Lipase 37 03/21/21 20:15: Urine Co
[2021-03-21 20:00] VITALS: BP 123/79; PULSE 100; O2SAT 100
[2021-03-21 20:19] LABS: Microscopic, Urine URINE MICROSCOPIC (MICROSCOPIC)
[2021-03-21 20:26] LABS: Appearance,Urine CLEAR (Clear); Blood, Urine Negative (Negative); Color,Urine AMBER (Yellow); Glucose,Urine (UA) Negative (Negative); Ketones,Urine Negative (Negative); Leukocyte Esterase,Urine TRACE (Negative); Nitrate,Urine Negative (Negative); PH,Urine 7.5 (5.0-8.5); Protein,Urine TRACE (Negative); Urobilinogen,Urine >=8.0 EU/dl (0.2)
[2021-03-21 20:28] LABS: Bilirubin,Urine 2+ (Negative)
[2021-03-21 20:48] LABS: Bacteria,Urine Trace /lpf; WBC,Urine Occasional #/hpf (0-3)
[2021-03-21 20:58] VITALS: BP 118/77; PULSE 90; RESP 20; TEMP 37.1; O2SAT 99
== END 2021-03-21 21:06 | disposition home or self-care (01) ==
PROVIDERS: Emergency Provider Emergency Medicine; PCP Family Medicine
DX: R10.11 Right upper quadrant pain (principal); K59.00 Constipation, unspecified
CPT/HCPCS: 74177; 80053; 81001; 82150; 83690; 85025; 96372; 96375; 99283; J2405; Q9967